=== PATIENT | female | born 1955 | race Caucasian/White ===

== ENCOUNTER 2025-05-06 15:03 | Emergency (ER) | payer MEDICARE, OTHER, SELFPAY ==
[2025-05-06] VITALS (13 sets, daily range): BP systolic 114–179; BP diastolic 51–125; BMI 42.5
[2025-05-06 15:13] LABS: Glucose - Point of Care 126 mg/dl (70-99)
--- NOTE | 2025-05-06 17:39 | ED.GENMED ---
History of Present Illness
General
Chief Complaint: Overdose Unintentional
Source: patient
Exam Limitations: none
Time Seen by Provider: 05/06/25 16:20
Nursing documentation reviewed up to this point in time: agreed with
History of Present Illness
History of Present Illness:
The patient is a pleasant 70-year-old female with a past medical history of hypertension and diabetes who reports that accidentally she took double the amount of her morning medication. Patient reports that she forgot she had taken it so took a
second dose of all of her medication around 10:30 AM this morning. These medications include: Diltiazem 240 mg, duloxetine 30 mg, Celebrex 200 mg, metformin 1000 mg, Myrbetriq 50 mg, rosuvastatin 10 mg, Januvia 100 mg, and valsartan
hydrochlorothiazide 320 mg. Patient reports she feels well. She has no complaints of nausea vomiting. She denies feeling drowsy or lightheaded.
Past History
Past History
ED Past Medical History: Asthma, HTN, NIDDM and Other (Uterine Fibroid)
ED Past Surgical History: (X3) and Orthopedic (Back surgery)
Social History
Tobacco: Non-smoker
Alcohol: None
Drug: None
Personal:
Living: with family
Employment: Other
Family History
Family History: Other
Review of Systems
Review of Systems
Allergies reviewed?: Yes
Other source history: other ()
All Other Systems: ROS reviewed and negative except as documented in HPI and ROS
Phy Exam
Physical Exam
Physical Exam:
Physical Exam
General: no apparent distress, not acutely ill
Neck: supple. no meningeal signs. normal psoterior pharynx
Heart: s1/s2 regular rate and rhythm, no murmur. equal radial pulses.
Lungs: no acute respiratory distress. clear bilaterally
Abdomen: normal bowel sounds. not tender. no CVAT
Neuro: alert and oriented. no focal neurological deficits
Skin: no rash
Psychiatric: well kept. interactive and cooperative
Extremities: no edema. no calf tenderness. negative homans. good distal pulses
Course
Orders/Labs/Results
Orders:
Orders
05/06/25 18:16
Electrocardiogram (*1) Urgent
Reason for Study: Other
Other Reason for Exam: overdose
EKG- Treatment ONCE
Abnormal Lab Results
05/06/25
15:11
POC Glucose 126 H mg/dl
(70-99)
Vital Signs
Initial and Last Documented VS:
Initial Vital Signs
Temp Pulse Resp BP Pulse Ox
98.0 F 84 18 179/125 97
05/06/25 15:08 05/06/25 15:08 05/06/25 15:08 05/06/25 15:08 05/06/25 15:08
Last Documented Vital Signs
Temp Pulse Resp BP Pulse Ox
98.0 F 73 22 133/64 97
05/06/25 15:08 05/06/25 21:30 05/06/25 21:30 05/06/25 21:30 05/06/25 21:15
MDM/Problems Addressed
Differential Diagnosis Includes:
Unintentional overdose causing bradycardia, and intentional overdose causing hypoglycemia
MDM/Problems Addressed:
Patient presents with an acute unintentional overdose
Chronic conditions affecting care: DM
Acute Exacerbation and/or Progression of Chronic Illness:
Patient's blood sugars in the 120s. For now there is no acute hypoglycemia or hyperglycemia
*Pulse Oximetry
Patient hypoxic: no
Comment: Patient is 94% on room air
*EKG
Interpreted by ED Provider?: Yes
Interpretation: abnormal
Comparison EKG: no changes
Rate: normal
Rhythm: sinus
[place]: normal axis
Interval: normal interval
QRS Pattern: normal QRS
Ischemia: non-specific ST changes
*[facility] Interpretation
Rate: normal
Interpretation: normal
Rhythm: sinus
*Critical Care Note
Total Time (30-74mins, 75-104mins- exclusive of procedures): Not Applicable
Data Reviewed
Review of Other/Old Records Reveals: Testing (Cardiac catheterization shows a normal result in 2016)
Source: patient and spouse
Patient Management
Social determinants of health affecting care: Living situation and Strong social support
Discussion with other providers: Other (Discussed case with toxicology at [facility] who recommended we watch patient until 10 PM tonight to check for bradycardia due to diltiazem)
Update Note
Update Note:
Patient was monitored for many hours in the emergency department. She had no episodes of hypotension or bradycardia. Patient feels well and is happy to go home.
ED Attending Note
-
Portions of this chart may have been created with voice recognition software.� Occasional wrong word or��sound alike� substitutions may have occurred due to the inherent limitations of voice recognition software.
Discharge Plan
Departure
Patient Disposition: Home (Routine Discharge)
Date of Disposition: 05/06/25
Time of Disposition: 21:58
Patient with high blood pressure during this ER visit?: Yes
Condition: Good
Covid-19: Not Applicable
Discharge Problem:
Accidental overdose
Instructions: Accidental Overdose (DC), BLOOD PRESSURE
Prescriptions:
No Action
diltiazem HCl 240 MG capsule,extended release 24 hr
240 mg PO DAILY
pantoprazole 40 MG tablet,delayed release (DR/EC)
40 mg PO DAILY
albuterol sulfate 1 PUFF HFA aerosol inhaler
2 puff inhalation R Q4HPRN PRN (Reason: shortness of breath)
valsartan-hydrochlorothiazide 1 EACH tablet
320 tab PO DAILY
duloxetine 30 MG capsule,delayed release(DR/EC)
30 mg PO BID
quetiapine 25 mg Tablet
25 mg PO HS
celecoxib [Celebrex] 200 mg Capsule
200 mg PO DAILY
trazodone 50 mg Tablet
50 mg PO HS PRN (Reason: sleep)
cyanocobalamin (vitamin B-12) 1,000 mcg Tablet
1,000 mcg PO DAILY
thiamine HCl (vitamin B1) 100 mg Tablet
100 mg PO DAILY
ferrous sulfate [FeroSul] 325 mg (65 mg iron) Tablet
325 mg PO DAILY
metformin 1,000 mg Tablet
1,000 mg PO BIDWMEAL
montelukast 10 mg Tablet
10 mg PO DAILY
estradiol 0.01 % (0.1 mg/gram) Cream
1 g VAGINAL QHS
fluticasone propionate [Flonase] 50 mcg/actuation [place],Suspension
2 spray INTRANASAL DAILY
rosuvastatin 10 mg Tablet
10 mg PO DAILY
Januvia 100 mg Tablet
100 mg PO DAILY
cholecalciferol (vitamin D3) 50 mcg (2,000 unit) Capsule
50 mcg PO DAILY
mirabegron [Myrbetriq] 50 mg Tablet Extended Release 24 Hr
50 mg PO DAILY
Trelegy Ellipta 200-62.5-25 mcg Blister With Device
1 inh INHALATION DAILY
Referrals:
Stephanie Aguilar MD [Family Provider, Family Practice]
Activity Restrictions/Additional Instructions:
Hold off on any meds tonight. Restart your medications tomorrow morning as you would normally take them
Interventions
Interventions:
*Risk Screen - Suicide Last Done: 05/06/25 15:08
*General Assessment Last Done: 05/06/25 15:08
ED- Cardiac Assessment Last Done: 05/06/25 16:24
ED- Neurological Assessment Last Done: 05/06/25 16:24
ED-Psychological Assessment Last Done: 05/06/25 16:24
ED- Pulmonary Assessment Last Done: 05/06/25 16:24
Discharge Date and Time
Print Language: CZECH
== END 2025-05-06 22:57 | disposition home or self-care (01) ==
LOC: EMR 15:03
PROVIDERS: EMERGENCY PHYSICIAN Emergency Medicine; FAMILY PHYSICIAN Family Medicine
DX: T50.991A Poisoning by other drugs, medicaments and biological substances, accidental (unintentional), initial encounter (principal); X58.XXXA Exposure to other specified factors, initial encounter; E11.9 Type 2 diabetes mellitus without complications; I10 Essential (primary) hypertension; J45.909 Unspecified asthma, uncomplicated
CPT/HCPCS: 99284; 82962; 93005